=== PATIENT | male | born 1960 | race Caucasian/White ===

== ENCOUNTER 2017-02-14 07:50 | Day surgery (SDC) | payer BC ==
[~2017-02-14 07:50] MED LIST: ACETAMINOPHEN WITH CODEINE 1 EACH TABLET PO PRN; GENTAMICIN SULFATE 80 MG in DEXTROSE 5 % IN WATER 100 ML IV PRN; NORMAL SALINE 1,000 ML IV PRN; ONDANSETRON HCL/PF 2 MG/ML VIAL IV PRN; metroNIDAZOLE/SODIUM CHLORIDE 500 MG/100 ML BAG IV PRN
[2017-02-14] MEDS ORDERED: NORMAL SALINE 1,000 ML IV ONE (08:09)
[2017-02-14 11:06] VITALS: BP 119/74
== END 2017-02-14 07:51 | disposition home or self-care (01) ==
LOC: AMB 07:50
PROVIDERS: ATTEND Urology
PROC: 0VB03ZX Excision of Prostate, Percutaneous Approach, Diagnostic (ICD-10-PCS; principal; 2017-02-14 09:10)
DX: N40.1 Benign prostatic hyperplasia with lower urinary tract symptoms (principal); R35.0 Frequency of micturition; Z68.25 Body mass index [BMI] 25.0-25.9, adult